=== PATIENT | female | born 1995 | race Hispanic/Latino ===

== ENCOUNTER 2017-06-24 20:54 | Emergency (ER) | payer OTHER ==
[~2017-06-24] VITALS: Ht 162.6 cm; Wt 95.3 kg
[2017-06-24 21:10] VITALS: BP 122/78
--- NOTE | 2017-06-24 21:34 | ED INFLUENZA/URI COMPLAINT ---
History of Present Illness General Chief Complaint: General Adult Stated Complaint: CONGESTION/SOB X 4 DAYS Source: patient, old records Exam Limitations: no limitations Vital Signs & Intake/Output Vital Signs & Intake/Output Vital Signs Date Time Temp Pulse Resp B/P B/P Pulse O2 O2 Flow FiO2 Mean Ox Delivery Rate 06/243 96 06/24 2109 97.9 89 18 122/78 96 Room Air Allergies Coded Allergies: No Known Allergies (06/24/17) Reconcile Medications Albuterol Sulfate (Proair Hfa) 90 MCG HFA.AER.AD 2 PUF INH Q4-6 PRN PRN asthma Azithromycin 250 MG TABLET 1 DP PO AD bronchitis 2 the first day followed by 1 for days 2-5 Codeine Phosphate/Guaifenesi (Guaifen-Codeine 200-20 MG/10ML) 20 MG-200 MG/10 ML LIQUID 10 ML PO Q6HR PRN COUGH Methylprednisolone. (Medrol) 4 MG TAB.DS.PK 1 DP PO AD bronchitis 6 on day 1 then reduce by one tablet daily until gone Triage Note: PT TO ER C/C COUGH, SORE THROAT X 4 DAYS. DENIES FEVERS Triage Nurses Notes Reviewed? yes Onset: Gradual Duration: day(s): (4), constant Timing: recent history Severity: moderate Severity Numbers: 6 Prior Episodes/Possible Cause: occassional episodes No Modifying Factors: none Associated Symptoms: cough, nasal congestion, nasal drainage, sore throat, wheezing : No Patient currently breastfeeds: No HPI: 21-year-old female with history of asthma presents complaining of 4 day history of nonproductive cough wheezing sore throat and rhinorrhea congestion and body aches. She denies fevers or chills. Symptoms came on while driving home in a snowstorm. She's been using her albuterol inhaler without improvement and a try taking her mother's nebulizer without improvement. No chest pain palpitations dizziness lightheadedness. No modifying factors or associated symptoms no sick contacts she does not smoke. (Mohan Dowling) Past History Travel History Traveled to [place] past 21 day No Medical History Any Pertinent Medical History? see below for history Respiratory: asthma Surgical History Surgical History: none Psychosocial History What is your primary language Irish Tobacco Use: Never used Family History Hx Contributory? No (Mohan Dowling) Review of Systems Review of Systems Constitutional: Reports: see HPI. Comments Review of systems: See HPI, All other systems negative. Constitutional, no chills no fever, HEENT: sore throat congestion Cardiovascular: No chest pain Skin: no rashes, no change in skin Respiratory: No dyspnea cough no sputum GI: No nausea no vomiting, Muscle skeletal: No joint pain, no back pain Neurologic: , no headache Heme/endocrine: No bruising (Mohan Dowling) Physical Exam Physical Exam General Appearance: well developed/nourished, no apparent distress, alert, awake Ears, Nose, Throat: normal ENT inspection, moist mucous membrane, hearing grossly normal Comments: Well-developed well-nourished patient in no apparent distress. Head/Face: Atraumatic, no maxillary/frontal sinus tenderness, no facial swelling Eyes: PERRL, EOMI, no conjunctival injection Ear:External auditory canal and Tympanic membranes clear, no erythema, no FB. Nose: atraumatic.Normal inspection: No bleeding, no septal hematoma Throat: Moist mucous membranes.Pharynx normal. No pharyngeal erythema/exudate seen. No stridor/drooling or assymetry. No swelling or edema. Neck: Supple, no lymphadenopathy, FROM Back: FROM Cardiovascular: Regular rate and rhythm no murmur Respiratory: No respiratory distress. Patient speaking in full complete sentences. Expiratory wheezes bilaterally no rhonchi no rales Extremities: full range of motion Neuro: awake, alert, and oriented to person, place and time. There were no obvious focal neurologic abnormalities. Skin: Warm & dry;No appreciable rash on exposed skin Psych: Mood affect normal, normal memory normal judgment. Core Measures Sepsis Present: No Sepsis Focused Exam Completed? No (Mohan Dowling) Progress Differential Diagnosis: influenza, otitis, pneumonia, pharyngitis, sinusitis, bronchitis Plan of Care: Orders Procedure Date/time Status RAPID VIRAL INFLUENZA A 06/24 2111 Complete Microbiology 06/24 2111 NASOPHARYN: Influenza Virus A & B Rapid Smear - COMP DuoNeb ordered patient medicated prednisone 60 MG by mouth Patient reports to feeling significantly improved after breathing treatment. I discussed with the patient at length all of their results. I had an extensive conversation regarding need for close follow up with their primary care physician this week as well as return precautions. I answered all of their questions, they feel comfortable with the plan and follow-up care. I discussed with the patient/family the medications that they will receive. I gave them signs and symptoms that could indicate an adverse reaction. I have advised them to limit their activities until they can see how they respond to the medication. Initial ED EKG: none (Mohan Dowling) Departure Departure Time of Disposition: 2215 Disposition: HOME OR SELF CARE Condition: Stable Clinical Impression Primary Impression: Bronchitis Referrals: Caroline Velazquez MD (PCP/Family) Additional Instructions: Azithromycin as directed. Medrol Dosepak, pro-air inhaler as needed. Use the cough medicine with codeine for your cough, however use caution as this is a narcotic and will make you drowsy. no driving while taking. Follow-up with your primary care physician this week return anytime sooner with any concerns. Departure Forms: Customer Survey General Discharge Information Prescriptions: Current Visit Scripts Azithromycin 1 DP PO AD #6 TAB 2 the first day followed by 1 for days 2-5 Methylprednisolone. (Medrol) 1 DP PO AD #1 DP 6 on day 1 then reduce by one tablet daily until gone Albuterol Sulfate (Proair Hfa) 2 PUF INH Q4-6 PRN PRN asthma #1 INHAL Codeine Phosphate/Guaifenesi (Guaifen-Codeine 200-20 MG/10ML) 10 ML PO Q6HR PRN COUGH #120 ML (Mohan Dowling) PA/COMPUTER ARTIST Co-Sign Statement Statement: ED Attending supervision documentation- I saw and evaluated the patient. I have also reviewed all the pertinent lab results and diagnostic results. I agree with the findings and the plan of care as documented in the PA's/COMPUTER ARTIST's documentation. x I have reviewed the ED Record and agree with the PA's/COMPUTER ARTIST's documentation. [] Additions or exceptions (if any) to the PAs/COMPUTER ARTIST's note and plan are summarized below: [] (Eva DUKES,Arley)
[2017-06-24] MEDS ORDERED: PROAIR HFA8.5 GM INH (22:18)
[2017-06-24] MEDS ORDERED: MEDROL4 M2 PO (22:18)
[2017-06-24] MEDS ORDERED: GUAIFEN-CODEINE10 ML PO (22:18)
[2017-06-24] MEDS ORDERED: AZITHROMYCIN250 M1 PO (22:18)
== END 2017-06-24 22:25 ==
LOC: ERH 20:54
DX: J40 Bronchitis, not specified as acute or chronic (principal); J02.9 Acute pharyngitis, unspecified
CPT/HCPCS: 1263; 87804; 87804-59